=== PATIENT | male | born 1985 | race Two or more races ===

== ENCOUNTER → 2019-10-10 10:18 | Outpatient (CLI) | payer OTHER | END | disposition home or self-care (01) | LOC: LAB 10:18 | PROVIDERS: ATTEND Obstetrics & Gynecology | DX: Z20.828 Contact with and (suspected) exposure to other viral communicable diseases (principal); J06.9 Acute upper respiratory infection, unspecified ==

== ENCOUNTER 2021-01-24 17:15 | Emergency (ER) | payer OTHER ==
[~2021-01-24] VITALS: Ht 170.2 cm; Wt 59.9 kg
[2021-01-24] MEDS ORDERED: CIPRO500 MG PO (21:31)
[2021-01-24] MEDS ORDERED: NORFLEX100MG PO (21:33)
== END 2021-01-24 21:39 | disposition home or self-care (01) ==
LOC: ER 17:15
DX: K46.9 Unspecified abdominal hernia without obstruction or gangrene (principal); M62.838 Other muscle spasm; K52.89 Other specified noninfective gastroenteritis and colitis; N20.0 Calculus of kidney

== ENCOUNTER 2021-03-09 11:47 | Outpatient (CLI) | payer OTHER ==
[~2021-03-09 11:47] MED LIST: CIPRO500 MG PO; NORFLEX100MG PO
== END 2021-03-09 11:55 | disposition home or self-care (01) ==
LOC: RAD 11:47
PROVIDERS: ATTEND Surgery
DX: I10 Essential (primary) hypertension (principal); M43.8X4 Other specified deforming dorsopathies, thoracic region; K40.90 Unilateral inguinal hernia, without obstruction or gangrene, not specified as recurrent

== ENCOUNTER 2021-03-09 12:33 | Outpatient (CLI) | payer OTHER | END 2021-03-09 12:40 | disposition home or self-care (01) | LOC: EKG 12:33 | PROVIDERS: ATTEND Surgery | DX: I10 Essential (primary) hypertension (principal) ==

== ENCOUNTER 2021-03-14 06:25 | Day surgery (SDC) | payer OTHER ==
[2021-03-14] MEDS ORDERED: ULTRACET PO (09:17)
[2021-03-14] MEDS ORDERED: PROTONIX40 MG PO (09:18)
[2021-03-14] MEDS ORDERED: AMOX1TAB5 PO (09:28)
== END 2021-03-14 16:15 | disposition home or self-care (01) ==
LOC: CIR.AMB 06:25
PROVIDERS: ATTEND Surgery
DX: K40.90 Unilateral inguinal hernia, without obstruction or gangrene, not specified as recurrent (principal); Z20.822 Contact with and (suspected) exposure to COVID-19